=== PATIENT | male | born 1960 | race Caucasian/White ===

== ENCOUNTER → 2017-10-13 | Outpatient (CLI) | payer BC ==
[~2017-10-13] MED LIST: LEVAQUIN500 MG PO; LISINOPRIL 10MG10 MG PO; PROAIR HFA0.09 MG/AC IH; SIMVASTATIN40 MG PO
[2017-10-13 13:57] LABS: BUN 19 mg/dL (7-18)
[2017-10-13 14:13] LABS: GFR (ESTIMATED) 52 ML/MIN (>60)
[2017-10-13 14:21] LABS: HEMOGLOBIN 15.8 g/dL (14.1-18.0); LYMPH # 2.7 K/mm3 (0.7-4.5); LYMPH % 36.9 % (10-50)
[2017-10-14 08:46] LABS: Vitamin D, 25-Hydroxy 34.2 ng/mL (30.0-100.0)
== END ==
LOC: CARL-LAB 07:03
PROVIDERS: Internal Medicine Adolescent Medicine
DX: E78.5 Hyperlipidemia, unspecified (principal); E55.9 Vitamin D deficiency, unspecified; E53.8 Deficiency of other specified B group vitamins